=== PATIENT | female | born 1945 | race Hispanic/Latino ===

== ENCOUNTER 2018-11-24 07:24 | Day surgery (SDC) | payer OTHER ==
[~2018-11-24] VITALS: Ht 149.9 cm; Wt 54.0 kg
[~2018-11-24 07:24] MED LIST: AMLO5TAB9 PO; ATOR20TA65 PO; CLOP75TA14 PO; LINA5TAB PO; METF-444 PO; OLME40TA18 PO; OMEP40CA37 PO; SODIUM CHLORIDE 0.9% 1000ML 1,000 ML IV ONE; TYL3 PO
[2018-11-24 08:59] VITALS: BP 132/67
[2018-11-24] MEDS ORDERED: PROPOFOL 10 MG/ML 20ML VIAL IV ONE (10:50)
[2018-11-24 11:20] VITALS: BP 124/58
[2018-11-24 11:25] VITALS: BP 140/61
[2018-11-24 11:30] VITALS: BP 127/91
[2018-11-24 11:36] VITALS: BP 137/58
[2018-11-24 11:40] VITALS: BP 141/47
== END 2018-11-24 12:06 | disposition home or self-care (01) ==
LOC: DAH 07:24 → ENDO 07:24
PROVIDERS: ATTEND Internal Medicine
DX: K52.9 Noninfective gastroenteritis and colitis, unspecified (principal); K57.30 Diverticulosis of large intestine without perforation or abscess without bleeding; K64.0 First degree hemorrhoids; K29.50 Unspecified chronic gastritis without bleeding; K31.7 Polyp of stomach and duodenum; Z86.010 Personal history of colon polyps; I10 Essential (primary) hypertension; E78.5 Hyperlipidemia, unspecified; E11.9 Type 2 diabetes mellitus without complications; M19.90 Unspecified osteoarthritis, unspecified site; Z86.73 Personal history of transient ischemic attack (TIA), and cerebral infarction without residual deficits; Z79.899 Other long term (current) drug therapy; Z97.10 Presence of artificial limb (complete) (partial), unspecified; Z98.49 Cataract extraction status, unspecified eye; Z88.8 Allergy status to other drugs, medicaments and biological substances
CPT/HCPCS: 43239; 45380; 82948 ×2; 88305; 93005; A4606; J2704; J7030 ×2; 44389